=== PATIENT | female | born 1980 | race African-American/Black ===

== ENCOUNTER 2023-12-18 14:13 | Observation (INO) | payer OTHER ==
[2023-12-18 14:30] VITALS: BMI 34.2
[2023-12-18 18:21] LABS: BASO % 0.3 % (0-2.0); EOS % 0.9 % (0-4.5); HEMATOCRIT 39.8 % (32.4-45.2); HEMOGLOBIN 13.2 GM/dL (10.7-15.3); MCH 29.9 pg (25.7-33.7); MCHC 33.3 g/dl (32.0-36.0); MEAN PLT VOLUME 7.1 fl (7.5-11.1); MONO % 7.1 % (3.8-10.2); NEUT % 70.7 % (42.8-82.8); PLATELET COUNT 395 10^3/uL (134-434); RBC 4.42 M/mm3 (3.60-5.2)
[2023-12-18 18:24] LABS: EPI CELLS 15 /uL (0-25.1); HYALINE CASTS 1 /uL (0-3.1); PH,URINE 5.5 (5.0-8.0); URINE APPEARANCE CLEAR; URINE BACTERIA 76 /uL (0-1359); URINE BILIRUBIN NEGATIVE (NEGATIVE); URINE COLOR YELLOW; URINE GLUCOSE (UA) NEGATIVE (NEGATIVE); URINE KETONE 1+ (NEGATIVE); URINE LEUK ESTERASE NEGATIVE (NEGATIVE); URINE NITRITE NEGATIVE (NEGATIVE); URINE PROTEIN NEGATIVE (NEGATIVE); URINE RBC 16 /uL (0-23.9); URINE WBC 12 /uL (0-25.8)
[2023-12-18 18:25] LABS: HCG,QUALITATIVE URINE Negative
[2023-12-18 18:29] LABS: COCAINE, UR NEGATIVE (NEGATIVE); METHADONE, UR NEGATIVE (NEGATIVE); URINE BENZODIAZEPINES NEGATIVE (NEGATIVE)
[2023-12-18 18:30] LABS: PHENCYCLIDINE,URINE NEGATIVE (NEGATIVE); URINE BARBITURATES NEGATIVE (NEGATIVE)
[2023-12-18 18:35] LABS: OPIATES, URI NEGATIVE (NEGATIVE); URINE AMPHETAMINES POSITIVE (NEGATIVE)
[2023-12-18 18:40] LABS: CHLORIDE 108 mmol/L (98-107); POTASSIUM 3.5 mmol/L (3.5-5.1); SODIUM 138 mmol/L (136-145)
[2023-12-18 18:42] LABS: CALCIUM 8.7 mg/dL (8.5-10.1)
[2023-12-18 18:43] LABS: ALBUMIN 3.5 g/dl (3.4-5.0); ANION GAP 6 mmol/L (4-13); BLOOD UREA NITROGEN 10.4 mg/dL (7-18); CO2 25 mmol/L (21-32); GLUCOSE,RANDOM 95 mg/dL (74-106)
[2023-12-18 18:46] LABS: SGOT/AST 14 U/L (15-37); SGPT/ALT 31 U/L (13-61)
[2023-12-18 18:47] LABS: BILIRUBIN,TOTAL 0.5 mg/dL (0.2-1); TOT PROT 7.3 g/dl (6.4-8.2)
[2023-12-18 18:48] LABS: ALK PHOS 72 U/L (45-117)
[2023-12-19] MEDS: ENOXAPARIN NA (PORCINE) 40 MG/0.4 ML DISP.SYRIN SQ SCH (09:30)
[2023-12-19 11:05] LABS: BASO % 0.2 % (0-2.0); EOS % 1.1 % (0-4.5); HEMATOCRIT 39.6 % (32.4-45.2); HEMOGLOBIN 13.2 GM/dL (10.7-15.3); LYMPH % 21.7 % (8-40); MCH 30.5 pg (25.7-33.7); MCHC 33.2 g/dl (32.0-36.0); MEAN PLT VOLUME 7.6 fl (7.5-11.1); MONO % 8.1 % (3.8-10.2); NEUT % 68.9 % (42.8-82.8); PLATELET COUNT 388 10^3/uL (134-434); RBC 4.31 M/mm3 (3.60-5.2); RDW 13.5 % (11.6-15.6); WHITE BLOOD COUNT 10.6 K/mm3 (4.0-10.0)
[2023-12-19] MEDS: OLANZapine 10 MG TABLET PO SCH (21:28)
[2023-12-19] MEDS: LORazepam 1 MG TABLET PO PRN (23:11)
[2023-12-20 13:08] VITALS: RESP 18
[2023-12-22 12:26] VITALS: BP 145/76; PULSE 78; TEMP 97.5
== END 2023-12-22 13:41 ==
LOC: JER 14:13 → JERBED 19:45 → J8W 12-19 15:57
PROVIDERS: ADMIT Internal Medicine; ATTEND Internal Medicine
PROC: 3E023GC Introduction of Other Therapeutic Substance into Muscle, Percutaneous Approach (ICD-10-PCS; principal; 2023-12-18)
DX: F32.3 Major depressive disorder, single episode, severe with psychotic features (principal); F15.959 Other stimulant use, unspecified with stimulant-induced psychotic disorder, unspecified; F90.9 Attention-deficit hyperactivity disorder, unspecified type; F29 Unspecified psychosis not due to a substance or known physiological condition; R45.1 Restlessness and agitation; F41.8 Other specified anxiety disorders
CPT/HCPCS: 36415; 71045-TC-FY; 80053; 80307; 81003; 84703; 85025; 87635; 93005; 93010; 99285-25; G0378